=== PATIENT | female | born 1940 | race Caucasian/White ===

== ENCOUNTER 2019-12-28 08:07 | Outpatient (CLI) | payer MEDICARE, SELFPAY ==
--- NOTE | ~2019-12-28 | MM_ITS ---
EXAMINATION: MM screening tatiana BI w floyd HISTORY: Screening mammogram TECHNIQUE: Craniocaudal and mediolateral oblique 3-D tomosynthesis images were obtained and synthetic 2-D images were generated. CAD analysis was submitted and interpreted. COMPARISON: Comparison to multiple prior studies sequentially, with oldest reviewed study dated 11/22. BREAST PARENCHYMAL COMPOSITION: There are scattered areas of fibroglandular density. FINDINGS: Left breast asymmetry laterally containing calcifications in the left breast are not signif icantly changed allowing for differences of technique. These calcifications appear to layer on the ML O view. There is no evidence of suspicious mass, calcification, or architectural distortion to sugges t malignancy in either breast. There has been no suspicious interval change. IMPRESSION: 1. No mammographic evidence of malignancy. 2. Recommend routine screening mammography in one year. BI-RADS Category 2: Benign finding(s). Reviewed, dictated and finalized at location A. P STITCHER
== END 2019-12-28 08:08 | disposition home or self-care (01) ==
LOC: ANHIMG 08:15
PROVIDERS: PCP Family Medicine; Visit Provider Physician Assistant Medical
DX: Z12.31 Encounter for screening mammogram for malignant neoplasm of breast (principal)
CPT/HCPCS: 77063; 77067

== ENCOUNTER 2020-01-13 11:06 | Outpatient (CLI) | payer MEDICARE, SELFPAY ==
[2020-01-13 11:31] LABS: Hematocrit 39.7 % (37.0-47.0); Hemoglobin 12.6 g/dL (12.0-15.0); Mean Corpuscular HGB Conc 31.7 g/dl (32-36); Mean Corpuscular Hemoglobin 32.2 pg (26-34); Mean Corpuscular Volume 101.5 fl (80-100); Mean Platelet Volume 11.7 fl (7.4-10.4); Platelet Count Result 131 k/mm3 (150-375); Red Blood Count 3.91 M/mm3 (4.2-5.4); Red Cell Distribution Width 14.4 % (11.5-14.5)
[2020-01-13 11:42] LABS: Alanine Aminotransferase 28 U/L (4-35); Albumin Level 4.3 g/dL (3.5-5.1); Alkaline Phosphatase 66 U/L (38-126); Aspartate Amino Transferase 35 U/L (14-36); Bilirubin,Total 0.7 mg/dL (0.2-1.3); Blood Urea Nitrogen 21 mg/dL (7-17); Carbon Dioxide 25 mmol/L (22-30); Chloride 107 mmol/L (98-107); Estimated Glomerular Filt Rate > 60; Glucose 204 mg/dL (65-105); Potassium 4.4 mmol/L (3.4-5.0); Sodium 140 mmol/L (137-145)
[2020-01-13 13:20] LABS: Cholesterol 158 mg/dL (0-200); HDL Direct 46 mg/dL; Triglycerides 252 mg/dL (<150)
[2020-01-13 13:22] LABS: LDL Cholesterol Direct 56 mg/dL
== END 2020-01-13 11:07 | disposition home or self-care (01) ==
PROVIDERS: PCP Family Medicine; Visit Provider Family Medicine
DX: E11.65 Type 2 diabetes mellitus with hyperglycemia (principal); I10 Essential (primary) hypertension; Z79.4 Long term (current) use of insulin; E78.5 Hyperlipidemia, unspecified; E55.9 Vitamin D deficiency, unspecified
CPT/HCPCS: 36415; 80053; 80061; 84443; 85027

== ENCOUNTER 2020-05-29 07:51 | Outpatient (CLI) | payer MEDICARE, SELFPAY ==
--- NOTE | ~2020-05-29 | DEXA_ITS ---
Bone Density Report Name: Caryl Zamora Age: 79 Sex: Female Ethnicity: White Date of : 1940 Indication: osteopenia; monitoring treatment; height loss; prior fracture; cancer; hysterectomy; Referring Provider: Royal Mascorro Study: Bone densitometry was performed. Exam Date: May 29, 2020 Accession number: [id number] Bone Density: Region BMD T-score Z-score Classification AP Spine (L1-L4) 0.838 -1.9 0.7 Osteopenia Femoral Neck (Left) 0.603 -2.2 0.0 Osteopenia Total Hip (Left) 0.896 -0.4 1.6 Normal Total Hip Bilateral Avg 0.867 -0.6 1.4 Normal Femoral Neck (Right) 0.478 -3.3 -1.1 Osteoporosis Total Hip (Right) 0.837 -0.9 1.1 Normal World Health Organization criteria for BMD impression classify patients as: Normal (T-score at or above -1.0), Osteopenia (T-score between -1.0 and -2.5), or Osteoporosis (T-score at or below -2.5). 10-year Fracture Risk: FRAX not reported because: Some T-score for Spine Total or Hip Total or Femoral Neck at or below -2.5 Treated for osteoporosis Previous Exams: Region Exam Age BMD T-score BMD Change BMD Change Date g/cm2 vs Baseline vs Previous AP Spine(L1-L4) 05/29/2020 79 0.838 -1.9 0.001(0.1%)# -0.072(-7.9%)* 05/25/2018 77 0.910 -1.2 0.073(8.8%)# 0.024(2.7%)# 05/22/2016 75 0.887 -1.5 0.050(6.0%)# -0.021(-2.3%)# 10/18/2013 73 0.907 -1.3 0.071(8.4%)# 0.007(0.8%) 10/11/2011 71 0.900 -1.3 0.063(7.6%)# 0.069(8.3%)# 03/15/2009 68 0.831 -2.0 -0.005(-0.7%) 0.068(9.0%)* 02/05/2007 66 0.763 -2.6 -0.074(-8.8%)* -0.074(-8.8%)* 08/27/2004 64 0.837 -1.9 Total Hip(Left) 05/29/2020 79 0.896 -0.4 0.025(2.9%)# -0.014(-1.5%)# 05/25/2018 77 0.910 -0.3 0.039(4.5%)# -0.002(-0.2%)# 05/22/2016 75 0.912 -0.2 0.041(4.8%)# -0.039(-4.1%)# 10/18/2013 73 0.952 0.1 0.081(9.3%)# 0.049(5.4%)* 10/11/2011 71 0.903 -0.3 0.032(3.7%)# 0.141(18.4%)# 03/15/2009 68 0.762 -1.5 -0.109(-12.5%) 0.003(0.3%) 02/05/2007 66 0.760 -1.5 -0.111(-12.8%) -0.111(-12.8%) 08/27/2004 64 0.871 -0.6 Total Hip(Right) 05/29/2020 79 0.837 -0.9 0.003(0.4%)# -0.087(-9.4%)# 05/25/2018 77 0.924 -0.1 0.090(10.8%)# 0.034(3.8%)# 05/22/2016 75 0.890 -0.4 0.056(6.7%)# -0.025(-2.7%)# 10/18/2013 73 0.915 -0.2 0.081(9.7%)# 0.080(9.6%)* 10/11/2011 71 0.835 -0.9 0.001(0.1%)# 0.123(17.3%)# 03/15/2009 68 0.712 -1.9 -0.122(-14.6%) -0.025(-3.4%) 02/05/2007 66 0.737 -1.7 -0.097(-11.6%) -0.097(-11.6%) 08/27/2004 64 0.834 -0.9
[2020-05-29 10:14] LABS: Creatinine Urine 181.1 mg/dL
[2020-05-29 10:19] LABS: MALB Creatinine Ratio 37.3 mg/g (0-30); Microalbumin Urine Random 67.5 mg/L (0-16.7)
== END 2020-05-29 07:52 | disposition home or self-care (01) ==
PROVIDERS: PCP Family Medicine; Visit Provider Physician Assistant Medical
DX: Z78.0 Asymptomatic menopausal state (principal); E11.65 Type 2 diabetes mellitus with hyperglycemia; M85.88 Other specified disorders of bone density and structure, other site; M85.852 Other specified disorders of bone density and structure, left thigh; M81.0 Age-related osteoporosis without current pathological fracture
CPT/HCPCS: 77080; 82043

== ENCOUNTER 2020-06-05 10:17 | Outpatient (CLI) | payer MEDICARE, SELFPAY ==
[2020-06-05 11:18] LABS: Hemoglobin A1C 6.8 % (<5.7)
[2020-06-05 11:25] LABS: Alanine Aminotransferase 32 U/L (4-35); Albumin Level 4.2 g/dL (3.5-5.1); Alkaline Phosphatase 59 U/L (38-126); Anion Gap 14.2 mmol/L (7-16); Aspartate Amino Transferase 43 U/L (14-36); Bilirubin,Total 0.9 mg/dL (0.2-1.3); Blood Urea Nitrogen 28 mg/dL (7-17); Calcium 9.8 mg/dL (8.4-10.2); Carbon Dioxide 26 mmol/L (22-30); Chloride 103 mmol/L (98-107); Estimated Glomerular Filt Rate 44; Glucose 156 mg/dL (65-105); Potassium 4.2 mmol/L (3.4-5.0); Sodium 139 mmol/L (137-145)
[2020-06-05 11:47] LABS: Cholesterol 163 mg/dL (0-200); HDL Direct 40 mg/dL; Triglycerides 290 mg/dL (<150)
[2020-06-05 11:54] LABS: Vitamin D 25 Hydroxy 27.5 ng/mL
[2020-06-05 11:58] LABS: LDL Cholesterol Direct 59 mg/dL
== END 2020-06-05 10:18 | disposition home or self-care (01) ==
LOC: ANHLAB 10:24
PROVIDERS: PCP Family Medicine; Visit Provider Family Medicine
DX: E11.51 Type 2 diabetes mellitus with diabetic peripheral angiopathy without gangrene (principal); M81.8 Other osteoporosis without current pathological fracture; N18.9 Chronic kidney disease, unspecified; Z79.4 Long term (current) use of insulin
CPT/HCPCS: 36415; 80053; 80061; 82306; 83036

== ENCOUNTER 2020-08-25 10:02 | Outpatient (CLI) | payer MEDICARE, SELFPAY ==
[2020-08-25 10:40] LABS: Anion Gap 9 mmol/L (8-16); Blood Urea Nitrogen 28 mg/dL (7-17); Calcium 9.4 mg/dL (8.4-10.2); Carbon Dioxide 26 mmol/L (22-30); Chloride 107 mmol/L (98-107); Estimated Glomerular Filt Rate 43; Glucose 188 mg/dL (65-105); Potassium 4.8 mmol/L (3.4-5.0); Sodium 142 mmol/L (137-145)
== END 2020-08-25 10:03 | disposition home or self-care (01) ==
LOC: ANHLAB 10:05
PROVIDERS: PCP Family Medicine; Visit Provider Family Medicine
DX: Z79.899 Other long term (current) drug therapy (principal)
CPT/HCPCS: 36415; 80048

== ENCOUNTER 2020-11-24 10:33 | Outpatient (CLI) | payer MEDICARE, SELFPAY ==
[2020-11-24 10:49] LABS: Basophils Percent Auto 0.3 % (0.2-1.2); Eosinophils Absolute Auto 0.2 K/mm3 (0-0.3); Eosinophils Percent Auto 3.2 % (0-4.4); Hematocrit 39.4 % (37.0-47.0); Hemoglobin 12.5 g/dL (12.0-15.0); Immature Granulocyte Absolute 0.02 K/mm3 (0.00-0.031); Immature Granulocyte Percent A 0.3 % (0-0.5); Lymphocytes Absolute Auto 2.16 K/mm3 (0.9-3.2); Lymphocytes Percent Auto 36.3 % (18.3-44.2); Mean Corpuscular HGB Conc 31.7 g/dl (32-36); Mean Corpuscular Hemoglobin 32.6 pg (26-34); Mean Corpuscular Volume 102.9 fl (80-100); Mean Platelet Volume 11.4 fl (7.4-10.4); Monocytes Absolute Auto 0.6 K/mm3 (0.1-0.6); Monocytes Percent Auto 9.6 % (2.6-8.5); Neutrophils Percent Auto 50.3 % (45.5-73.1); Platelet Count Result 125 k/mm3 (150-375); Red Blood Count 3.83 M/mm3 (4.2-5.4); Red Cell Distribution Width 14.1 % (11.5-14.5)
[2020-11-24 11:00] LABS: Hemoglobin A1C 7.4 % (<5.7)
[2020-11-24 11:03] LABS: Alanine Aminotransferase 28 U/L (4-35); Albumin Level 3.9 g/dL (3.5-5.1); Alkaline Phosphatase 60 U/L (38-126); Anion Gap 4 mmol/L (8-16); Aspartate Amino Transferase 34 U/L (14-36); Bilirubin,Total 0.6 mg/dL (0.2-1.3); Blood Urea Nitrogen 14 mg/dL (7-17); Calcium 9.5 mg/dL (8.4-10.2); Carbon Dioxide 27 mmol/L (22-30); Chloride 109 mmol/L (98-107); Cholesterol 158 mg/dL (0-200); Estimated Glomerular Filt Rate 54; Glucose 151 mg/dL (65-105); HDL Direct 47 mg/dL; Sodium 140 mmol/L (137-145); Triglycerides 290 mg/dL (<150)
[2020-11-24 11:13] LABS: LDL Cholesterol Direct 53 mg/dL
[2020-11-24 11:39] LABS: Vitamin D 25 Hydroxy 25.1 ng/mL
== END 2020-11-24 10:34 | disposition home or self-care (01) ==
LOC: ANHLAB 10:35
PROVIDERS: Family Provider Family Medicine; PCP Family Medicine; Visit Provider Family Medicine
DX: E11.29 Type 2 diabetes mellitus with other diabetic kidney complication (principal); R80.9 Proteinuria, unspecified; Z51.81 Encounter for therapeutic drug level monitoring; Z79.4 Long term (current) use of insulin; I10 Essential (primary) hypertension; E11.51 Type 2 diabetes mellitus with diabetic peripheral angiopathy without gangrene
CPT/HCPCS: 36415; 80053; 80061; 82306; 82607; 83036; 85025

== ENCOUNTER 2020-12-27 10:18 | Outpatient (CLI) | payer MEDICARE, SELFPAY ==
[2020-12-27 10:53] LABS: Basophils Percent Auto 0.6 % (0.2-1.2); Eosinophils Absolute Auto 0.2 K/mm3 (0-0.3); Hematocrit 40.3 % (37.0-47.0); Hemoglobin 12.8 g/dL (12.0-15.0); Immature Granulocyte Absolute 0.03 K/mm3 (0.00-0.031); Immature Granulocyte Percent A 0.6 % (0-0.5); Immature Platelet Fraction Pct 7.3 % (0.9-11.2); Lymphocytes Absolute Auto 1.58 K/mm3 (0.9-3.2); Lymphocytes Percent Auto 31.6 % (18.3-44.2); Mean Corpuscular HGB Conc 31.8 g/dl (32-36); Mean Corpuscular Hemoglobin 31.8 pg (26-34); Mean Corpuscular Volume 100.2 fl (80-100); Mean Platelet Volume 11.3 fl (7.4-10.4); Monocytes Absolute Auto 0.5 K/mm3 (0.1-0.6); Neutrophils Absolute Auto 2.7 K/mm3 (1.3-6.7); Neutrophils Percent Auto 53.2 % (45.5-73.1); Platelet Count Result 148 k/mm3 (150-375); Red Blood Count 4.02 M/mm3 (4.2-5.4); Red Cell Distribution Width 14.2 % (11.5-14.5)
== END 2020-12-27 10:19 | disposition home or self-care (01) ==
PROVIDERS: PCP Family Medicine; Visit Provider Family Medicine
DX: D75.89 Other specified diseases of blood and blood-forming organs (principal); E53.8 Deficiency of other specified B group vitamins
CPT/HCPCS: 36415; 82607; 85025; 85055

== ENCOUNTER 2021-09-14 10:43 | Outpatient (CLI) | payer MEDICARE, SELFPAY ==
[2021-09-14 11:08] LABS: Basophils Percent Auto 0.6 % (0.2-1.2); Eosinophils Absolute Auto 0.1 K/mm3 (0-0.3); Hematocrit 45.3 % (37.0-47.0); Hemoglobin 14.2 g/dL (12.0-15.0); Immature Granulocyte Absolute 0.09 K/mm3 (0.00-0.031); Immature Granulocyte Percent A 1.3 % (0-0.5); Lymphocytes Absolute Auto 1.68 K/mm3 (0.9-3.2); Lymphocytes Percent Auto 24.9 % (18.3-44.2); Mean Corpuscular HGB Conc 31.3 g/dl (32-36); Mean Corpuscular Volume 105.3 fl (80-100); Mean Platelet Volume 11.3 fl (7.4-10.4); Monocytes Absolute Auto 0.7 K/mm3 (0.1-0.6); Monocytes Percent Auto 10.1 % (2.6-8.5); Neutrophils Absolute Auto 4.2 K/mm3 (1.3-6.7); Neutrophils Percent Auto 62.1 % (45.5-73.1); Platelet Count Result 123 k/mm3 (150-375); Red Cell Distribution Width 14.8 % (11.5-14.5); White Blood Count 6.8 K/mm3 (4.5-10.0)
[2021-09-14 11:20] LABS: Alanine Aminotransferase 39 U/L (4-35); Albumin Level 4.3 g/dL (3.5-5.1); Alkaline Phosphatase 55 U/L (38-126); Anion Gap 5 mmol/L (8-16); Aspartate Amino Transferase 35 U/L (14-36); Bilirubin,Total 0.9 mg/dL (0.2-1.3); Blood Urea Nitrogen 19 mg/dL (7-17); Calcium 9.2 mg/dL (8.4-10.2); Carbon Dioxide 35 mmol/L (22-30); Chloride 102 mmol/L (98-107); Cholesterol 183 mg/dL (0-200); Estimated Glomerular Filt Rate 60; Glucose 115 mg/dL (65-110); HDL Direct 95 mg/dL; Potassium 3.7 mmol/L (3.4-5.0); Sodium 142 mmol/L (137-145); Triglycerides 97 mg/dL (<150)
[2021-09-14 11:31] LABS: LDL Cholesterol Direct 66 mg/dL
[2021-09-14 11:32] LABS: Hemoglobin A1C 8.5 % (<5.7)
[2021-09-14 11:42] LABS: Creatinine Urine 169.2 mg/dL
[2021-09-14 11:54] LABS: Vitamin D 25 Hydroxy 32.2 ng/mL
[2021-09-14 12:08] LABS: Vitamin B12 > 1000.0 pg/mL (239-931)
[2021-09-14 13:35] LABS: Microalbumin Urine Random > 1140.0 mg/L (0-16.7)
== END 2021-09-14 10:44 | disposition home or self-care (01) ==
LOC: ANHLAB 10:47
PROVIDERS: PCP Family Medicine; Visit Provider Family Medicine
DX: E11.65 Type 2 diabetes mellitus with hyperglycemia (principal); D75.89 Other specified diseases of blood and blood-forming organs; E53.8 Deficiency of other specified B group vitamins; E55.9 Vitamin D deficiency, unspecified; M81.0 Age-related osteoporosis without current pathological fracture
CPT/HCPCS: 36415; 80053; 80061; 82043; 82306; 82607; 83036; 85025

== ENCOUNTER 2021-09-21 11:16 | Outpatient (CLI) | payer MEDICARE, SELFPAY ==
[2021-09-21 12:11] LABS: Anion Gap 4 mmol/L (8-16); Blood Urea Nitrogen 22 mg/dL (7-17); Calcium 9.7 mg/dL (8.4-10.2); Carbon Dioxide 34 mmol/L (22-30); Chloride 100 mmol/L (98-107); Estimated Glomerular Filt Rate 60; Glucose 272 mg/dL (65-110); Potassium 3.9 mmol/L (3.4-5.0); Sodium 138 mmol/L (137-145)
[2021-09-21 13:36] LABS: Total Volume 24 Hour Urine 2900 ml
[2021-09-21 13:41] LABS: Creatinine 24 Hour Urine 1.1 gm/24 (0.8-1.8); Creatinine Urine 40.2 mg/dL
[2021-09-25 21:50] LABS: Albumin 24 Hr Urine 71 %; Creatinine, 24 Hr Urine 1.15 g/24 h (0.50-2.15); Total Protein/Creatinine Ratio 1263 mg/g creat (<=114)
== END 2021-09-21 11:17 | disposition home or self-care (01) ==
LOC: ANHLAB 11:20
PROVIDERS: PCP Family Medicine; Visit Provider Family Medicine
DX: E13.21 Other specified diabetes mellitus with diabetic nephropathy (principal)
CPT/HCPCS: 36415; 80048; 81050; 82570; 84156; 84166

== ENCOUNTER 2021-10-22 07:12 | Outpatient (CLI) | payer MEDICARE, SELFPAY ==
--- NOTE | ~2021-10-22 | NM_ITS ---
EXAMINATION: NM mariela stress w perfusion DATE: 10/22/2021 11:55 INDICATION: Dyspnea on exertion. TECHNIQUE: Rest images were obtained following intravenous administration of 10.3 mCi Tc99m tetrofosm in (Myoview). The patient was infused intravenously with Lexiscan (regadenoson). Then, 32 mCi Tc99m t etrofosmin (Myoview) was administered intravenously, and stress images were obtained. Data was recons tructed into short axis and horizontal and vertical long axis SPECT images. Gated SPECT images were a lso obtained. COMPARISON: None. FINDINGS: Breast attenuation artifact is noted. There is no definite reversible or fixed perfusion ab normality to suggest ischemia or infarction. There is no segmental wall motion abnormality. Left ve ntricular ejection fraction measures >70%. IMPRESSION: 1. No definite ischemia or infarct. Breast attenuation artifact decreases sensitivity and specificity in the anterior and lateral luther. 2. Normal left ventricular ejection fraction measuring >70%. Reviewed, dictated and finalized at location A. L BRAIDER IMPRESSION: 1. No definite ischemia or infarct. Breast attenuation artifact decreases sensi tivity and specificity in the anterior and lateral luther. 2. Normal left ventricular ejection fraction measuring >70%.
--- NOTE | 2021-10-22 07:45 | ECHO_ITS ---
Patient Info Name: Caryl Zamora Age: 81 years : 1940 Gender: Female Ht: 65 in Wt: 300 lbs BSA: 2.58 m2 HR: 98 bpm BP: 224 / 115 mmHg Technical Quality: Poor Exam Date: 10/22/2021 7:52 AM Exam Location: [facility] Patient Status: Outpatient Admit Date: 10/22/2021 Staff Ordering Physician: Keegan Pruitt DO Assistant Chief Of Police: Dorcas Chavira RDCS Attending Provider: Kegean Pruitt DO Referring Physician: Edmond FATIMA; Exam Type: CA echo dop color flow w con Study Info Indications R06.00 - Dyspnea, unspecified Complete two-dimensional, color flow and Doppler transthoracic echocardiogram is performed with contrast to opacify the left ventricle and to improve the deliniation of the left ventricle endocardial borders. Contrast/Agitated Saline Contrast/Ag. Saline: Definity Amount: 2.00 ml Administered By: Radha Antonio RN Existing IV Access: No New IV Access: Outer Forearm and Right Site Condition: No extravasation Reason for Poor Study: patient body habitus Summary 1. Technically suboptimal study due to poor sonographic images. 2. Left ventricular chamber dimension is normal. 3. Definity contrast administered improved wall motion interpretation. 4. Left ventricular systolic function is normal, estimated at 60-65%. 5. There is mildly increased left ventricular wall thickness. 6. The left ventricular diastolic function is grade I diastolic dysfunction. 7. E/e' 16 is elevated. 8. Left atrial chamber dimension is mildly enlarged. 9. There is mild aortic valve sclerosis. 10. No pulmonary hypertension, estimated pulmonary arterial systolic pressure is 30 mmHg. 11. There is trivial pericardial effusion. Left Ventricle Technically suboptimal study due to poor sonographic images. Definity contrast administered improved wall motion interpretation. Left ventricular chamber dimension is normal. Left ventricular systolic function is normal, estimated at 60-65%. There is mildly increased left ventricular wall thickness. The left ventricular diastolic function is grade I diastolic dysfunction. E/e' 16 is elevated. Right Ventricle Right ventricular chamber dimension is normal. Right ventricular systolic function is normal. Left Atria Left atrial chamber dimension is mildly enlarged. Right Atria Right atrial chamber dimension is normal. Aortic Valve The aortic valve is not well visualized. Cannot determine number of aortic valve leaflets. There is no aortic valve regurgitation based on valve area and gradients. There is mild aortic valve sclerosis. There is no aortic valve stenosis. Pulmonic Valve The pulmonic valve is not well visualized. Mitral Valve There is no mitral valve stenosis. There is no mitral valve regurgitation. Tricuspid Valve There is no tricuspid valve regurgitation. No pulmonary hypertension, estimated pulmonary arterial systolic pressure is 30 mmHg. Pericardium/Pleural There is trivial pericardial effusion. Aorta The aortic root size at the sinus of Valsalva is normal. Left Ventricular Outflow Tract Name Value Normal LVOT 2D LVOT Diameter 2.02 cm LVOT Doppler ---
--- NOTE | 2021-10-22 07:45 | EST_ITS ---
Patient Info Name: Caryl Zamora Age: 81 years : 1940 Gender: Female Ht: 64 in Wt: 314 lbs BSA: 2.63 m2 HR: 103 bpm BP: 209 / 90 mmHg Heart Rhythm: Sinus Rhythm Exam Date: 10/22/2021 10:19 AM Exam Location: [facility] Stress Patient Status: Outpatient Admit Date: 10/22/2021 Staff Ordering Physician: Keegan Pruitt DO Attending Provider: Keegan Pruitt DO Exercise Technologist: Jessica Hernandez CT Exercise Physician: Keegan Pruitt DO Exam Type: CA stress mariela w NM Study Info Indications R06.00 - Dyspnea, unspecified A regadenoson stress test was performed. Summary 1. 1. Negative lexiscan stress test for ischemic ST changes by ECG criteria. 2. 2. Baseline hypertension. 3. 3. Nuclear scan to follow and will be reported separately. Please correlate with it. 4. 4. Patient informed of the above results. Protocol: Lexiscan Stress ECG Details Stage: REST Duration (min): 1 min : 48 sec HR (bpm): 99 SBP (mmHg): 206 DBP (mmHg): 90 Stage: REST Duration (min): 5 min : 48 sec HR (bpm): 100 SBP (mmHg): 206 DBP (mmHg): 90 Stage: STAGE 1 Duration (min): 1 min : 0 sec HR (bpm): 109 SBP (mmHg): 211 DBP (mmHg): 88 Stage: RECOVERY Duration (min): 1 min : 0 sec HR (bpm): 108 SBP (mmHg): 211 DBP (mmHg): 88 Stage: RECOVERY Duration (min): 2 min : 0 sec HR (bpm): 104 SBP (mmHg): 211 DBP (mmHg): 88 Stage: RECOVERY Duration (min): 3 min : 0 sec HR (bpm): 102 SBP (mmHg): 211 DBP (mmHg): 88 Stage: RECOVERY Duration (min): 3 min : 15 sec HR (bpm): 102 SBP (mmHg): 203 DBP (mmHg): 83 Rest HR: 100 bpm Peak HR: 110 bpm Rest Sys BP: 206 mmHg Peak Sys BP: 211 mmHg Max Pred HR: 141 bpm % Max Pred HR: 78 % Target HR: 120 bpm Max RPP: 23,210 bpm*mmHg Termination Reason: Completed protocol Cardiac Symptoms: Shortness of breath Total Time: 1 min : 0 sec Rest Kramer BP: 90 mmHg Peak Kramer BP: 88 mmHg Total Dose: 0.4 mg Resting ECG Sinus rhythm. Stress ECG No ST changes. Arrhythmias None. Report Signatures
== END 2021-10-22 07:13 | disposition home or self-care (01) ==
PROVIDERS: PCP Family Medicine; Visit Provider Internal Medicine Cardiovascular Disease
DX: R06.00 Dyspnea, unspecified (principal); I70.0 Atherosclerosis of aorta
CPT/HCPCS: 78452; 93017; A9502; C8929; J2785